=== PATIENT | female | born 1955 | race Caucasian/White ===

== ENCOUNTER 2017-10-22 12:32 | Emergency (ER) | payer OTHER ==
[~2017-10-22] VITALS: Ht 157.5 cm; Wt 222.3 kg
[2017-10-22 12:37] VITALS: BP 105/56
--- NOTE | 2017-10-22 13:02 | NUR ---
PT MOVED TO BED 11.
--- NOTE | 2017-10-22 13:15 | NUR ---
62f biba with c/o nausea and "unable to eat" since this past Sunday; Pt sts obtaining to manage nausea with Zofran medication at home without any improvement; Pt denies any fever or diarrhea at this time; Pt also c/o vag bleeding since yesterday; Pt denies any urinary complaints; Pt is aox4, RR are even and unlabored. Pt positioned to comfort, bed down. VSS. NAD. Er mD aware of pt status. All needs met at this time. Will continue to monitor.
--- NOTE | 2017-10-22 13:38 | NUR ---
Patient being evaluated by Dr. Santiago at bedside.
[2017-10-22] MEDS: PROMETHAZINE 25 MG/ML VIAL IVP ONE (14:00)
[2017-10-22] MEDS: KETOROLAC 30 MG/ML VIAL IVP ONE (14:02)
[2017-10-22 14:16] LABS: BASOPHILS # (AUTO) 0.1 K/uL (0.00-0.22); BASOPHILS % (AUTO) 0.8 % (0.0-2.0); EOSINOPHILS # (AUTO) 0.2 K/uL (0-0.4); EOSINOPHILS % (AUTO) 0.9 % (0.0-4.0); HEMATOCRIT 30.8 % (36-48); HEMOGLOBIN 9.7 g/dL (12.0-16.0); LYMPHOCYTES # (AUTO) 1.7 K/uL (2.5-16.5); LYMPHOCYTES % (AUTO) 10.1 % (20.5-51.1); MEAN CORPUSCULAR HEMOGLOBIN 21 pg (27-31); MEAN CORPUSCULAR HGB CONC 31 g/dL (33-37); MEAN CORPUSCULAR VOLUME 66 fL (80-94); MONOCYTES # (AUTO) 0.7 K/uL (0.8-1.0); NEUTROPHILS # (AUTO) 14.2 K/uL (1.8-7.7); NEUTROPHILS % (AUTO) 84.2 % (42.2-75.2); PLATELET COUNT (AUTO) 333 K/uL (140-450); RED BLOOD CELL COUNT(AUTO) 4.69 MIL/uL (4.20-5.40); RED CELL DISTRIBUTION WIDTH 17.8 % (11.6-13.7); WHITE BLOOD COUNT (AUTO) 16.9 K/uL (4.8-10.8)
[2017-10-22] MEDS: NACL 0.9% 1,000 ML IV SCH (14:25)
[2017-10-22 14:33] LABS: ALBUMIN 2.9 g/dL (3.4-5.0); ANION GAP 12.5 (8-16); CARBON DIOXIDE 26.3 mmol/L (21-32)
[2017-10-22 14:37] LABS: POTASSIUM 2.8 mmol/L (3.5-5.1)
[2017-10-22] MEDS: LORazepam 2 MG/ML VIAL IVP ONE (14:51)
--- NOTE | 2017-10-22 14:57 | NUR ---
Yanni greene in [facility] - 10/22/17 at 1712 by DWIGHT PABLO WHITT RN UPDATING PT AND PT'S ON PLAN OF CARE FOR DISCHARGE HOME; PT AND VERBALIZE UNDERSTANDING.
--- NOTE | 2017-10-22 14:57 | NUR ---
PABLO WHITT RN UPDATING PT AND PT'S ON PLAN OF CARE FOR DISCHARGE HOME; PT AND VERBALIZE UNDERSTANDING.
[2017-10-22] MEDS: POTASSIUM CHLORIDE 10 MEQ TABER PO ONE (15:17)
--- NOTE | 2017-10-22 15:20 | NUR ---
PT WITH NO COMPLAINTS; BY BEDSIDE; VSS; NAD; WILL CONTINUE TO MONITOR.
[2017-10-22] MEDS ORDERED: POTASSIUM CHLORIDE 20% 40 MEQ/15 ML UDC ONE (15:25)
--- NOTE | 2017-10-22 16:57 | NUR ---
PABLO WHITT RN UPDATING PT AND PT'S ON PLAN OF CARE FOR DISCHARGE HOME; PT AND VERBALIZE UNDERSTANDING.
--- NOTE | 2017-10-22 17:45 | NUR ---
PT WITH NO COMPLAINTS; LAYING SUPINE IN GURNEY; VSS; NAD; WILL CONTINUE TO MONITOR.
--- NOTE | 2017-10-22 18:45 | NUR ---
Pt awaiting transportation. Pt with no complaints. by bedside. NAD.
--- NOTE | 2017-10-22 19:22 | NUR ---
Pt report given to Johanny MOODY. Transfer of care at this time.
--- NOTE | 2017-10-22 19:23 | NUR ---
PT RESTING IN BED, FAMILY AT BEDSIDE. NO S/S OF DISTRESS NOTED AT THE MOMENT.
[2017-10-22 22:33] VITALS: BP 128/66
--- NOTE | 2017-10-22 22:33 | NUR ---
Patient discharged with v/s stable. Written and verbal after care instructions given and explained. Patient alert, oriented and verbalized understanding of instructions. Ambulance Transport with to home. All questions addressed prior to discharge. ID band removed. Patient advised to follow up with PMD. Rx of PHENERGAN given. Patient educated on indication of medication including possible reaction and side effects. Opportunity to ask questions provided and answered.
== END 2017-10-22 22:33 | disposition home or self-care (01) ==
LOC: MED 12:32
DX: R11.0 Nausea (principal); N93.9 Abnormal uterine and vaginal bleeding, unspecified; J45.909 Unspecified asthma, uncomplicated; E11.9 Type 2 diabetes mellitus without complications; I10 Essential (primary) hypertension; Z88.2 Allergy status to sulfonamides; Z88.5 Allergy status to narcotic agent; Z88.0 Allergy status to penicillin; Z90.89 Acquired absence of other organs
CPT/HCPCS: 36415; 80053; 81002; 81025; 83690; 85025; 96361; 96374; 96375; 99284; C1758; J1885; J2060; J2550; J7030